=== PATIENT | female | born 1940 | race Caucasian/White ===

== ENCOUNTER → 2019-09-11 | Outpatient (CLI) | payer MEDICARE, OTHER ==
--- NOTE | 2019-09-11 15:54 | Diagnostic Imaging Report ---
PROCEDURE: CT urinary tract, rule out kidney stone. TECHNIQUE: Multiple contiguous axial images were obtained through the abdomen and pelvis without the use of intravenous contrast. Auto Exposure Controls were utilized during the CT exam to meet ALARA standards for radiation dose reduction. INDICATION: Right-sided abdominal pain. This study was performed to evaluate for kidney stones. COMPARISON: No prior studies are available for comparison. FINDINGS: The lung bases are clear. The liver does contain some small low densities with the largest in the left lobe measuring approximately 15 mm in size, likely representing cysts. The gallbladder appears to be surgically absent. No biliary ductal dilatation is seen. The pancreas and spleen are unremarkable. No adrenal mass is identified. No definite renal calculi are seen. No definite ureteral calculi are detected although the distal ureters are obscured by beam hardening artifact from the patient's bilateral hip prostheses. This also obscures the urinary bladder. The uterus is unremarkable. There is diverticulosis of the sigmoid and descending colon but no evidence of acute diverticulitis. The bowel loops appear to be nonobstructed. No free fluid or fluid collection is identified. The bony structures are nonacute. IMPRESSION: 1. No definite urinary tract calculi or obstruction. Note is made that the bladder and distal ureters are obscured by artifact from the patient's bilateral hip prostheses. 2. Uncomplicated diverticulosis. Dictated by: Dictated on workstation # [id number]
== END ==
LOC: RAD FS 14:53
PROVIDERS: ATTEND Family Medicine
DX: N39.0 Urinary tract infection, site not specified (principal); K57.30 Diverticulosis of large intestine without perforation or abscess without bleeding
CPT/HCPCS: 74176